=== PATIENT | female | born 1985 | race African-American/Black ===

== ENCOUNTER 2020-04-03 14:47 | Emergency (ER) | payer OTHER ==
[~2020-04-03] VITALS: Ht 157.5 cm; Wt 62.6 kg
--- NOTE | 2020-04-03 14:57 | NUR ---
Urine specimen collected and dipped.
[2020-04-03 15:05] VITALS: BP_SYST 127
--- NOTE | 2020-04-03 15:21 | NUR ---
Patient to ER bed 04 to gown for evaluation. Side rails up. Report given to ELAINE Ochoa.
--- NOTE | 2020-04-03 15:28 | NUR ---
PT PRESENTS AAOX4, CO OF RIGHT UPPER ABD PAIN FOR THE LAST MONTH. REPORTS STARTED IN AUG OF THIS YEAR AND WAS OFF AND ON FOR SEVERAL MONTHS THEN WENT AWAY. RETURNED THIS MONTH. NO PREVIOUS HX, V/S STABLE
--- NOTE | 2020-04-03 15:40 | NUR ---
DR. SONI AT THE BEDSIDE EVALUATING PT
[2020-04-03 16:22] LABS: BASOPHILS % (AUTO) 0.4 % (0.0-2.0); EOSINOPHILS # (AUTO) 0.1 K/uL (0.0-0.4); EOSINOPHILS % (AUTO) 1.4 % (0.0-4.0); HEMATOCRIT 43.9 % (36-48); HEMOGLOBIN 14.7 g/dL (12.0-16.0); LYMPHOCYTES # (AUTO) 1.7 K/uL (1.0-5.5); LYMPHOCYTES % (AUTO) 22.8 % (20.5-51.5); MEAN CORPUSCULAR HEMOGLOBIN 29 pg (27-31); MEAN CORPUSCULAR HGB CONC 34 % (32-36); MEAN CORPUSCULAR VOLUME 87 fL (79.0-98.0); MONOCYTES # (AUTO) 0.5 K/uL (0.0-1.0); MONOCYTES % (AUTO) 7.5 % (1.7-9.3); NEUTROPHILS # (AUTO) 4.9 K/uL (1.8-7.7); NEUTROPHILS % (AUTO) 67.9 % (40.0-70.0); PLATELET COUNT (AUTO) 269 K/uL (130-430); RED BLOOD CELL COUNT(AUTO) 5.04 MIL/uL (4.2-6.2); RED CELL DISTRIBUTION WIDTH 14.5 % (9.0-15.0); WHITE BLOOD COUNT (AUTO) 7.3 K/uL (4.8-10.8)
[2020-04-03 16:23] LABS: CREATININE 0.87 mg/dL (0.55-1.30); POTASSIUM 3.5 mmol/L (3.5-5.1)
[2020-04-03 16:34] LABS: ALBUMIN 3.9 g/dL (3.4-4.8); TOTAL BILIRUBIN 0.5 mg/dL (0.0-1.0)
--- NOTE | 2020-04-03 16:40 | NUR ---
Patient resting quietly. No acute distress noted. Vital signs within normal range.
[2020-04-03 17:26] VITALS: BP_SYST 127
--- NOTE | 2020-04-03 17:29 | NUR ---
Patient given written and verbal discharge instructions and verbalizes understanding. ER MD discussed with patient the results and treatment provided. Patient in stable condition. ID arm band removed. Patient educated on pain management and to follow up with PMD. Pain Scale 0/10. Opportunity for questions provided and answered. Medication side effect fact sheet provided.
== END 2020-04-03 17:26 | disposition home or self-care (01) ==
LOC: SED 14:47
DX: R03.1 Nonspecific low blood-pressure reading (principal); F17.200 Nicotine dependence, unspecified, uncomplicated
CPT/HCPCS: 36415; 76700-TC; 80053; 81002; 81025; 83690-TC; 85025; 99284

== ENCOUNTER 2021-06-21 15:28 | Emergency (ER) | payer BC, OTHER ==
[~2021-06-21] VITALS: Ht 157.5 cm; Wt 59.0 kg
[2021-06-21 15:28] VITALS: BP_SYST 118
[2021-06-21 16:22] LABS: BASOPHILS % (AUTO) 0.2 % (0.0-2.0); EOSINOPHILS # (AUTO) 0.1 K/uL (0.0-0.4); EOSINOPHILS % (AUTO) 1.2 % (0.0-4.0); HEMATOCRIT 42.4 % (36-48); HEMOGLOBIN 14.5 g/dL (12.0-16.0); LYMPHOCYTES # (AUTO) 1.5 K/uL (1.0-5.5); LYMPHOCYTES % (AUTO) 17.5 % (20.5-51.5); MEAN CORPUSCULAR HEMOGLOBIN 31 pg (27-31); MEAN CORPUSCULAR HGB CONC 34 % (32-36); MEAN CORPUSCULAR VOLUME 91 fL (79.0-98.0); MONOCYTES # (AUTO) 0.6 K/uL (0.0-1.0); MONOCYTES % (AUTO) 6.8 % (1.7-9.3); NEUTROPHILS # (AUTO) 6.3 K/uL (1.8-7.7); NEUTROPHILS % (AUTO) 74.3 % (40.0-70.0); PLATELET COUNT (AUTO) 270 K/uL (130-430); RED BLOOD CELL COUNT(AUTO) 4.66 MIL/uL (4.2-6.2); RED CELL DISTRIBUTION WIDTH 13.9 % (9.0-15.0); WHITE BLOOD COUNT (AUTO) 8.5 K/uL (4.8-10.8)
[2021-06-21 16:33] LABS: CALCIUM 9.4 mg/dL (8.4-11.0); CREATININE 1.06 mg/dL (0.55-1.30); POTASSIUM 3.8 mmol/L (3.5-5.1)
[2021-06-21 16:38] LABS: TOTAL BILIRUBIN 0.4 mg/dL (0.0-1.0)
[2021-06-21] MEDS ORDERED: IBUP-1969 PO (16:53)
[2021-06-21 17:04] VITALS: BP_SYST 118
== END 2021-06-21 17:08 | disposition home or self-care (01) ==
LOC: SED 15:28
DX: R10.9 Unspecified abdominal pain (principal); M54.50 Low back pain, unspecified; Z79.899 Other long term (current) drug therapy
CPT/HCPCS: 36415; 76376; 80053; 81002; 81025; 85025; 99284